=== PATIENT | female | born 1965 | race Caucasian/White ===

== ENCOUNTER → 2023-05-27 11:10 | Outpatient (REF) | payer BC, SELFPAY ==
[2023-05-27 12:18] LABS: ALT (SGPT) 70 U/L (0-35); AST (SGOT) 79 U/L (14-36); Albumin 4.4 g/dl (3.5-5.0); Alkaline Phosphatase 69 U/L (38-126); Blood Urea Nitrogen 18 mg/dl (7-17); Calcium 9.5 mg/dl (8.4-10.2); Carbon Dioxide 24 mmol/L (22-30); Chloride 101 mmol/L (98-107); Glucose 108 mg/dl (70-99); Magnesium 1.8 mg/dl (1.6-2.3); Potassium 3.8 mmol/L (3.5-5.1); Sodium 136 mmol/L (135-145); Total Bilirubin 0.5 mg/dl (0.2-1.3); Total Protein 7.5 g/dl (6.3-8.2); eGFR > 60.00
[2023-05-27 12:47] LABS: Hematocrit 38.6 % (37.0-47.0); Hemoglobin 13.9 g/dL (12.0-16.0); Mean Corpuscular Hgb 29.4 pg (27.0-31.0); Mean Corpuscular Volume 81.8 fL (81.0-99.0); Mean Platelet Volume 10.3 fL (7.4-10.4); Platelet Count 312 10^3/uL (130-400); Red Blood Cell Count 4.72 10^6/uL (4.20-5.40); White Blood Cell Count 4.3 10^3/uL (4.8-10.8)
[2023-05-27 13:49] LABS: Acanthocytes Slight; Anisocytosis Slight; Hypochromasia Slight
[2023-05-27 13:50] LABS: Normal RBC Morphology No; Platelets Checked Yes; Stomatocytes Slight; Total Cells Counted 100
[2023-05-27 14:28] LABS: Band Neutrophils 3 % (0-3); Lymphocytes 56 % (20-51); Monocytes 16 % (2-9); Segmented Neutrophils 22 % (42-75)
== END ==
LOC: REG 11:10
PROVIDERS: ATTENDING PHYSICIAN Nurse Practitioner Family
DX: R00.2 Palpitations (principal)
CPT/HCPCS: 36415; 80053; 83735; 85025

== ENCOUNTER → 2023-06-29 17:23 | Outpatient (REF) | payer BC, SELFPAY ==
[2023-06-29 17:54] LABS: % Basophils 0.5 % (0-2); % Eosinophils 2.2 % (0-6); % Immature Granulocytes 0.2 % (0-0.5); % Lymphocytes 50.7 % (20.5-51.1); % Monocytes 12.7 % (1.7-9.3); % Neutrophils 33.7 % (42.2-75.2); Absolute Basophils 0.1 10^3/uL (0-0.2); Absolute Eosinophils 0.2 10^3/uL (0-0.7); Absolute Lymphocytes 5.2 10^3/uL (1.2-3.4); Absolute Monocytes 1.3 10^3/uL (0.1-0.6); Absolute Neutrophils 3.4 10^3/uL (1.4-6.5); Hematocrit 37.2 % (37.0-47.0); Hemoglobin 13.2 g/dL (12.0-16.0); Mean Corp Hgb Conc. 35.5 g/dL (33.0-37.0); Mean Corpuscular Hgb 29.8 pg (27.0-31.0); Mean Platelet Volume 9.6 fL (7.4-10.4); Nucleated Red Blood Cells % 0 %; Platelet Count 374 10^3/uL (130-400); Red Blood Cell Count 4.43 10^6/uL (4.20-5.40); Red Cell Dist. Width 13.5 % (11.5-14.5); White Blood Cell Count 10.2 10^3/uL (4.8-10.8)
[2023-06-29 18:09] LABS: Erythrocyte Sed Rate 14 mm/hour (0-20)
[2023-06-29 18:10] LABS: ALT (SGPT) 58 U/L (0-35); AST (SGOT) 62 U/L (14-36); Albumin 4.7 g/dl (3.5-5.0); Alkaline Phosphatase 99 U/L (38-126); Blood Urea Nitrogen 21 mg/dl (7-17); Calcium 10.2 mg/dl (8.4-10.2); Carbon Dioxide 28 mmol/L (22-30); Chloride 104 mmol/L (98-107); Glucose 84 mg/dl (70-99); Potassium 4.7 mmol/L (3.5-5.1); Sodium 136 mmol/L (135-145); Total Bilirubin 0.5 mg/dl (0.2-1.3); Total Protein 8.1 g/dl (6.3-8.2); eGFR > 60.00
[2023-06-29 18:12] LABS: C-Reactive Protein < 5.00 mg/L (0.0-10.00)
== END ==
LOC: REG 17:23
PROVIDERS: ATTENDING PHYSICIAN Nurse Practitioner Adult Health
DX: R59.0 Localized enlarged lymph nodes (principal)
CPT/HCPCS: 36415; 80053; 85025; 85652; 86140

== ENCOUNTER → 2023-07-10 07:20 | Outpatient (REF) | payer BC, SELFPAY | LOC: HWRAD 07:20 | PROVIDERS: ATTENDING PHYSICIAN Nurse Practitioner Adult Health | DX: R59.0 Localized enlarged lymph nodes (principal) | CPT/HCPCS: 76536 ==

== ENCOUNTER → 2023-07-30 16:35 | Outpatient (REF) | payer BC, SELFPAY ==
[2023-07-30 17:41] LABS: ALT (SGPT) 55 U/L (0-35); AST (SGOT) 62 U/L (14-36); Albumin 4.5 g/dl (3.5-5.0); Alkaline Phosphatase 92 U/L (38-126); Blood Urea Nitrogen 25 mg/dl (7-17); Calcium 9.9 mg/dl (8.4-10.2); Carbon Dioxide 26 mmol/L (22-30); Chloride 105 mmol/L (98-107); Glucose 85 mg/dl (70-99); Potassium 4.4 mmol/L (3.5-5.1); Sodium 138 mmol/L (135-145); Total Bilirubin 0.5 mg/dl (0.2-1.3); Total Protein 7.6 g/dl (6.3-8.2); eGFR > 60.00
== END ==
LOC: REG 16:35
PROVIDERS: ATTENDING PHYSICIAN Nurse Practitioner Adult Health
DX: R74.01 Elevation of levels of liver transaminase levels (principal)
CPT/HCPCS: 36415; 80053

== ENCOUNTER → 2023-10-08 13:34 | Outpatient (REF) | payer BC, SELFPAY | LOC: WDC 13:34 | PROVIDERS: ATTENDING PHYSICIAN Nurse Practitioner Adult Health | DX: Z12.31 Encounter for screening mammogram for malignant neoplasm of breast (principal) | CPT/HCPCS: 77063; 77067 ==

== ENCOUNTER → 2023-10-23 11:27 | Outpatient (REF) | payer BC, SELFPAY ==
[2023-10-23 13:33] LABS: ALT (SGPT) 35 U/L (0-35); AST (SGOT) 54 U/L (14-36); Albumin 4.4 g/dl (3.5-5.0); Alkaline Phosphatase 88 U/L (38-126); Blood Urea Nitrogen 23 mg/dl (7-17); Calcium 9.7 mg/dl (8.4-10.2); Carbon Dioxide 23 mmol/L (22-30); Chloride 105 mmol/L (98-107); Glucose 81 mg/dl (70-99); Potassium 4.5 mmol/L (3.5-5.1); Sodium 138 mmol/L (135-145); Total Bilirubin 0.7 mg/dl (0.2-1.3); Total Protein 7.3 g/dl (6.3-8.2); eGFR > 60.00
== END ==
LOC: RAD 11:27
PROVIDERS: ATTENDING PHYSICIAN Nurse Practitioner Adult Health
DX: M25.562 Pain in left knee (principal); R74.8 Abnormal levels of other serum enzymes
CPT/HCPCS: 36415; 73564; 80053

== ENCOUNTER → 2024-04-12 10:05 | Outpatient (REF) | payer BC, SELFPAY | LOC: WDC 10:05 | PROVIDERS: ATTENDING PHYSICIAN Nurse Practitioner Adult Health | DX: N63.21 Unspecified lump in the left breast, upper outer quadrant (principal) | CPT/HCPCS: 76642; 77061; 77065 ==

== ENCOUNTER → 2024-05-09 07:26 | Outpatient (REF) | payer BC, SELFPAY ==
[2024-05-09 09:19] LABS: % Basophils 0.4 % (0-2); % Eosinophils 1.8 % (0-6); % Immature Granulocytes 0.3 % (0-0.5); % Lymphocytes 31.1 % (20.5-51.1); % Monocytes 8.5 % (1.7-9.3); % Neutrophils 57.9 % (42.2-75.2); Absolute Eosinophils 0.1 10^3/uL (0-0.7); Absolute Lymphocytes 2.4 10^3/uL (1.2-3.4); Absolute Monocytes 0.7 10^3/uL (0.1-0.6); Absolute Neutrophils 4.5 10^3/uL (1.4-6.5); Hemoglobin 15.5 g/dL (12.0-16.0); Mean Corp Hgb Conc. 35.2 g/dL (33.0-37.0); Mean Corpuscular Hgb 29.4 pg (27.0-31.0); Mean Corpuscular Volume 83.5 fL (81.0-99.0); Mean Platelet Volume 9.4 fL (7.4-10.4); Nucleated Red Blood Cells % 0 %; Platelet Count 445 10^3/uL (130-400); Red Blood Cell Count 5.27 10^6/uL (4.20-5.40); Red Cell Dist. Width 12.2 % (11.5-14.5); White Blood Cell Count 7.7 10^3/uL (4.8-10.8)
[2024-05-09 10:03] LABS: ALT (SGPT) 31 U/L (0-35); AST (SGOT) 44 U/L (14-36); Alkaline Phosphatase 90 U/L (38-126); Blood Urea Nitrogen 20 mg/dl (7-17); Calcium 10.7 mg/dl (8.4-10.2); Carbon Dioxide 27 mmol/L (22-30); Chloride 104 mmol/L (98-107); Glucose 99 mg/dl (70-99); HDL Cholesterol 62 mg/dl; LDL Cholesterol, Calculated 120 mg/dl; Sodium 142 mmol/L (135-145); Total Cholesterol 205 mg/dl (50-199); Total Protein 8.2 g/dl (6.3-8.2); Triglyceride 118 mg/dl (10-149); Very Low Density Lipoprotein 23 mg/dl (0-30); eGFR > 60.00
[2024-05-09 10:32] LABS: TSH Reflex To Free T4 1.07 uIU/ml (0.47-4.68)
== END ==
LOC: RCS 07:26
PROVIDERS: ATTENDING PHYSICIAN Nurse Practitioner; FAMILY PHYSICIAN Nurse Practitioner Adult Health
DX: R07.9 Chest pain, unspecified (principal); Z00.00 Encounter for general adult medical examination without abnormal findings
CPT/HCPCS: 93017; 36415; 80053; 80061; 84443; 85025

== ENCOUNTER → 2024-05-11 08:22 | Outpatient (REF) | payer BC, SELFPAY | LOC: HWRCS 08:22 | PROVIDERS: ATTENDING PHYSICIAN Nurse Practitioner; FAMILY PHYSICIAN Nurse Practitioner Adult Health | DX: R07.9 Chest pain, unspecified (principal) | CPT/HCPCS: 93306 ==

== ENCOUNTER → 2024-05-14 09:38 | Outpatient (REF) | payer BC, SELFPAY | LOC: RCS 09:38 | PROVIDERS: ATTENDING PHYSICIAN Nurse Practitioner; FAMILY PHYSICIAN Nurse Practitioner Adult Health | DX: I49.3 Ventricular premature depolarization (principal) | CPT/HCPCS: 93225; 93226 ==

== ENCOUNTER → 2024-05-31 12:44 | Outpatient (REF) | payer BC, SELFPAY ==
[2024-05-31 13:47] LABS: Hematocrit 39.1 % (37.0-47.0); Hemoglobin 14.1 g/dL (12.0-16.0); Mean Corp Hgb Conc. 36.1 g/dL (33.0-37.0); Mean Corpuscular Volume 80.3 fL (81.0-99.0); Mean Platelet Volume 9.4 fL (7.4-10.4); Platelet Count 413 10^3/uL (130-400); Red Blood Cell Count 4.87 10^6/uL (4.20-5.40); Red Cell Dist. Width 12.1 % (11.5-14.5); White Blood Cell Count 9.3 10^3/uL (4.8-10.8)
[2024-05-31 14:16] LABS: Calcium 10.3 mg/dl (8.4-10.2); Iron 90 ug/dl (37-170)
[2024-05-31 14:21] LABS: % Basophils 0.3 % (0-2); % Eosinophils 1.7 % (0-6); % Immature Granulocytes 0.2 % (0-0.5); % Lymphocytes 46.8 % (20.5-51.1); % Monocytes 8.8 % (1.7-9.3); % Neutrophils 42.2 % (42.2-75.2); Absolute Eosinophils 0.2 10^3/uL (0-0.7); Absolute Lymphocytes 4.4 10^3/uL (1.2-3.4); Absolute Monocytes 0.8 10^3/uL (0.1-0.6); Absolute Neutrophils 3.9 10^3/uL (1.4-6.5); Nucleated Red Blood Cells % 0 %
[2024-05-31 14:25] LABS: Percent Saturation 29 % (20-50); Total Iron Binding Capacity 306 ug/dl (265-497)
--- NOTE | 2024-05-31 14:39 | CARDSERVLU ---
Echocardiogram with [facility] completed after protocol screening completed. Allergies verified.
Patent IV site: _Right antecubital 22 G PC inserted first attempt____
IV site flushed with 0.9% NaCl pre and post administration.
Diluted bolus method utilized to enhance visualization of ventricular pedro.
Total volume given: _3___ mL
Patient tolerated all procedures well without complications.
Hep;lock D/C ed at 1437, site clear, no redness, no edema. Pressure held, no bleeding. 2x2 applied and taped. Pt offers no complaints.
[2024-05-31 14:48] LABS: Hepatitis B Surface Antigen Negative (Negative)
[2024-05-31 14:53] LABS: Ferritin 61.4 ng/ml (11.1-264.0); Hepatitis A IgM Antibody Negative (Negative)
[2024-05-31 15:05] LABS: Hepatitis B Core Ab, Total Negative (Negative); Hepatitis C Antibody Negative (Negative)
[2024-06-01 08:51] LABS: Intact PTH 48.2 pg/ml (13.6-85.8)
== END ==
LOC: RCS 12:44
PROVIDERS: ATTENDING PHYSICIAN Internal Medicine Cardiovascular Disease; FAMILY PHYSICIAN Nurse Practitioner Adult Health
DX: I25.3 Aneurysm of heart (principal); I49.3 Ventricular premature depolarization; R07.9 Chest pain, unspecified
CPT/HCPCS: 93308; 36415; 82728; 83540; 83550; 83970; 85025; 86704; 86709; 86803; 87340; Q9950

== ENCOUNTER → 2024-06-15 10:29 | Outpatient (REF) | payer BC, SELFPAY | LOC: RAD 10:29 | PROVIDERS: ATTENDING PHYSICIAN Internal Medicine Cardiovascular Disease; FAMILY PHYSICIAN Nurse Practitioner Adult Health | DX: I72.9 Aneurysm of unspecified site (principal) | CPT/HCPCS: 75572; Q9967 ==

== ENCOUNTER → 2024-09-19 12:25 | Outpatient (REF) | payer BC, SELFPAY | LOC: RAD 12:25 | PROVIDERS: ATTENDING PHYSICIAN Thoracic Surgery (Cardiothoracic Vascular Surgery); FAMILY PHYSICIAN Nurse Practitioner Adult Health; OTHER PHYSICIAN Internal Medicine Cardiovascular Disease; OTHER PHYSICIAN Surgery | DX: I25.3 Aneurysm of heart (principal) | CPT/HCPCS: 75572; Q9967 ==

== ENCOUNTER 2024-10-20 20:10 | Emergency (ER) | payer BC, SELFPAY ==
[2024-10-20 20:19] VITALS: BP 171/91
[2024-10-20 20:54] LABS: Hematocrit 39.8 % (37.0-47.0); Hemoglobin 14.4 g/dL (12.0-16.0); Mean Corp Hgb Conc. 36.2 g/dL (33.0-37.0); Mean Corpuscular Volume 81.6 fL (81.0-99.0); Platelet Count 402 10^3/uL (130-400); Red Cell Dist. Width 12.2 % (11.5-14.5)
[2024-10-20 21:05] LABS: ALT (SGPT) 21 U/L (0-35); AST (SGOT) 39 U/L (14-36); Albumin 4.7 g/dl (3.5-5.0); Alkaline Phosphatase 91 U/L (38-126); Blood Urea Nitrogen 23 mg/dl (7-17); Calcium 10.0 mg/dl (8.4-10.2); Carbon Dioxide 27 mmol/L (22-30); Chloride 104 mmol/L (98-107); Glucose 106 mg/dl (70-99); Potassium 4.7 mmol/L (3.5-5.1); Sodium 137 mmol/L (135-145); Total Protein 8.0 g/dl (6.3-8.2); eGFR > 60.00
[2024-10-20 21:18] LABS: Troponin I 0.013 ng/ml
[2024-10-20 21:47] LABS: Absolute Neutrophils -Man Diff 4.1 10^3/uL (1.4-6.5); Platelets Checked Yes
[2024-10-20 21:48] LABS: Normal RBC Morphology Yes; Total Cells Counted 100
[2024-10-21 00:44] LABS: Troponin I < 0.012 ng/ml
[2024-10-21 00:50] VITALS: BP 164/96; BMI 28.1
[2024-10-21 00:52] VITALS: BP 164/96
[2024-10-21 01:00] VITALS: BP 170/94
[2024-10-21] MEDS: CARAFATE SUSPENSION 1 GM PO (01:24)
[2024-10-21] MEDS: NSS 1000 IV (01:24)
--- NOTE | 2024-10-21 02:10 | ED.GENMED ---
History of Present Illness
General
Chief Complaint: Chest Pain
Source: patient and spouse
Exam Limitations: none
Time Seen by Provider: 10/21/24 00:35
Nursing documentation reviewed up to this point in time: agreed with
History of Present Illness
History of Present Illness:
Note:
CHIEF COMPLAINT(S)
Chest pain.
HISTORY OF PRESENT ILLNESS
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 She reports the development of chest pain predominantly after dinner today. She noted that the pain was different from her
previous experiences with gastroesophageal reflux disease (GERD), describing it as more intense and different in quality compared to 'heart-burning.' The pain was significant enough for her to consider contacting her management internship, Dr. Meek.
The patient has had previous interventions and imaging, including a recent CT scan in September, revealing measurements of 1.6 mm or 2.4 mm depending on the test location. The need for repeat imaging and a full cardiac work-up was discussed to evaluate
the chest pain further.
SOCIAL HISTORY
The patient is actively involved in educational activities, assisting in setting up classroom environments. She has a daughter and shares that her family had a recent international travel experience, including a trip to [facility] and [facility].
PHYSICAL EXAM
General: Alert, no acute distress.
Skin: Warm, dry.
Head: Normocephalic, atraumatic.
Neck: Supple, trachea midline.
Eyes, Ears, Nose, Mouth and Throat: Oral mucosa moist.
Cardiovascular: Normal peripheral perfusion, No edema.
Respiratory: Respirations are non-labored.
Gastrointestinal: Abdomen non-distended.
Back: Normal range of motion, Normal alignment.
Musculoskeletal: Normal range of motion, normal strength.
Neurological: Alert and oriented to person, place, time, and situation, No focal neurological deficit observed.
Psychiatric: Cooperative, appropriate mood & affect.
PLAN
A full cardiac work-up was recommended to investigate the chest pain further. This includes repeat CT imaging of the chest to assess any changes from September and close monitoring of cardiac markers. The patient was advised on the possible use of
carafate to help alleviate symptoms that might be related to reflux or cardiac issues until further diagnostics could clarify the cause of pain.
DIFFERENTIAL DIAGNOSIS
The Differential Diagnosis includes, in no particular order and is not limited to:
1. Cardiac ischemia or myocardial infarction.
2. Gastroesophageal reflux disease (GERD).
3. Musculoskeletal chest pain.
4. Pericarditis.
5. Pulmonary embolism.
6. Anxiety-related chest pain.
7. Costochondritis.
8. Esophageal spasm or motility disorder.
9. Aortic dissection.
10. Cardiac arrhythmia or palpitations.
Disposition:
SUMMARY OF ENCOUNTER
The patient, a 59-year-old female, presented to the emergency department with complaints of chest pain. She has a medical history of cardiac ablation with resultant scar tissue formation. Her chest pain was not consistent with her prior
gastroesophageal reflux disease episodes and was sufficiently intense that she considered contacting her management internship. A CT scan of the chest was conducted today and did not reveal any pseudoaneurysm or other acute abnormalities. Laboratory results
showed a white blood cell count of 12.15, with neutrophils at 33% and lymphocytes at 53%, suggesting a potential developing infection, although no source was identified.
DISPOSITION
Discharge
ASSESSMENT
The patients chest pain with the current findings suggests a potential underlying developing infection, but with no identifiable source. The CT scan today ruled out immediate life-threatening conditions such as pseudoaneurysm.
PLAN
The plan is for the patient to follow up with her management internship for further evaluation and monitoring.
INDEPENDENT REVIEW OF LABS AND INTERPRETATION OF TESTS
My independent chest CT interpretation shows no evidence of pseudoaneurysm or other acute abnormalities.
PATIENT EDUCATION AND COUNSELING
The patient was informed about the current findings and the importance of following up with her management internship to monitor her chest pain and potential infection further.
FOLLOW-UP INSTRUCTIONS
The patient is instructed to follow up with her management internship for further evaluation and monitoring.
MEDICAL DECISION MAKING
- Number and Complexity of Problems Addressed: Chronic conditions affecting care include a history of cardiac ablation with scar tissue, potential developing infection. Differential diagnosis includes cardiac ischemia or myocardial infarction, GERD,
musculoskeletal chest pain, pericarditis, pulmonary embolism, anxiety-related chest pain, costochondritis, esophageal spasm or motility disorder, aortic dissection, and cardiac arrhythmia or palpitations.
- Data:
Category 1: Testing conducted includes a CT scan of the chest and CBC tests.
Category 2: My independent interpretation of the chest CT scan was conducted today.
- Risk: Consideration of Admission/Observation: Escalation of care including admission/observation was considered given the complexity and risk of the patients presenting complaint, but ultimately, the patient is deemed safe for outpatient
management with close follow-up due to reassuring work-up, stable vitals, and no acute life-threatening processes noted.
DIAGNOSIS
- Chest Pain, unspecified (ICD-10: R07.9)
- Leukocytosis, unspecified (ICD-10: D72.829)
Past History
Past History
ED Past Medical History: Arrthythmia (PVCs), HTN, Psychiatric and Other (Hereditary spherocytosis, cardiomyopathy, PVCs, migraine, concussion, anxiety, depression)
ED Past Surgical History: Cardiac (Ablation December 2018) and Other (Splenectomy)
Social History
Tobacco: Non-smoker
Alcohol: Occasional
Drug: None
Personal:
Living: with family
Phy Exam
Physical Exam
Physical Exam:
.
Scores
Heart Score for Chest Pain Patients
STEMI patient?: No
History: Slightly or Non-Suspicious
ECG: Normal
Age: >45 - <65 years
Risk Factors: 1 or 2 Risk Factors
Troponin: </= Normal Limit
Heart Score for Chest Pain Patients: 2
Heart Score Risk: 2.5% MACE over next 6 weeks
Course
Orders/Labs/Results
Orders:
Orders
10/20/24 20:11
Electrocardiogram (*1) Urgent
Reason for Study: Chest Pain
EKG- Treatment ONCE
10/20/24 20:34
Complete Blood Count/With Diff Urgent
Comprehensive Metabolic Panel Urgent
Manual Differential Urgent
Troponin I Urgent
10/21/24 00:13
Troponin I Urgent
10/21/24 00:47
CT Chest Angio W/wo Iv Contras Urgent
Comment:
Reason For Exam: known aneurysm, chest pain
10/21/24 01:00
Sucralfate Suspension [Carafate Suspension] 1 gm PO NOW STA
10/21/24 01:15
0.9% Sodium Chloride 1000 ml [Nss] 1,000 ml IV 500 mls/hr
10/21/24 01:30
0.9% Sodium Chloride 1000 ml [Nss] 1,000 ml IV 500 mls/hr
Abnormal Lab Results
10/20/24
20:34
WBC 12.5 H 10^3/uL
(4.8-10.8)
Plt Count 402 H 10^3/uL
(130-400)
Segmented Neutrophils 33 L %
(42-75)
Lymphocytes (Manual) 53 H %
(20-51)
BUN 23 H mg/dl
(7-17)
Glucose 106 H mg/dl
(70-99)
AST 39 H U/L
(14-36)
10/20/24 20:34
10/20/24 20:34
Vital Signs
Initial and Last Documented VS:
Initial Vital Signs
Temp Pulse Resp BP Pulse Ox
98.3 F 64 16 171/91 100
10/20/24 20:19 10/20/24 20:19 10/20/24 20:19 10/20/24 20:19 10/20/24 20:19
Last Documented Vital Signs
Temp Pulse Resp BP Pulse Ox
98.3 F 53 15 170/94 99
10/20/24 20:19 10/21/24 02:00 10/21/24 02:00 10/21/24 01:00 10/21/24 02:11
*Radiology
Radiology exam reviewed: radiology read reviewed
*Pulse Oximetry
SaO2: 99
Oxygen Mode of Delivery: Room air
Patient hypoxic: no
*Critical Care Note
Total Time (30-74mins, 75-104mins- exclusive of procedures): Not Applicable
Update Note
Update Note:
NAME: ROSETTA SINGH
DATE OF EXAM: 10/21/2024
Patient No: [id number]
Physician: NANI
Date of : 1965
Past Medical History (entered by Technologist):
Reason For Exam (entered by Technologist):
Other Notes (entered by Technologist): Pt states that she was at a [employer] dinner and started having midepigastric pain that she rates at a 6/10. Pt has burning midline pressure.
Additional Information (per [facility] Radiologist):
CTA CHEST
IMPRESSION:
1. Adequate technical study. No acute pulmonary embolism.
2. No thoracic aortic aneurysm or acute aortic dissection. Clear lungs.
Incidentals:
- Small hiatal hernia
- No acute osseous abnormality.
- No acute abnormality within the visualized abdomen.
- No thoracic lymphadenopathy or suspicious lymph nodes.
Case finalized on Oct 21 2024 1:47AM ET
Nhan Noriega M.D.
This report has been electronically signed and verified by the Radiologist whose name is printed above.
ED Attending Note
-
Portions of this chart may have been created with voice recognition software.� Occasional wrong word or��sound alike� substitutions may have occurred due to the inherent limitations of voice recognition software.
Discharge Plan
Departure
Patient Disposition: Home (Routine Discharge)
Date of Disposition: 10/21/24
Time of Disposition: 02:14
Patient with high blood pressure during this ER visit?: Yes
Condition: Good
Discharge Problem:
Chest pain
Instructions: Chest Pain PCP Follow Up, BLOOD PRESSURE
Prescriptions:
No Action
escitalopram oxalate 5 MG tablet
20 mg PO DAILY
metoprolol succinate 25 MG tablet extended release 24 hr
25 mg PO BID Qty: 60 10RF
acetaminophen 325 MG tablet
650 mg PO Q4HPRN PRN (Reason: MILD PAIN, HEADACHE)
Referrals:
Cande Ellington CRNP [Family Provider, Internal Medicine]
Activity Restrictions/Additional Instructions:
Thank You for choosing [facility].
It was a pleasure meeting you and taking part in your care. We hope for your continued healing and wellness.
Please read discharge instructions in their entirety. However, they are for general education and may not describe your exact diagnosis at discharge. Information on your ER visit and medical conditions were discussed with you along with appropriate
follow up information...
If indicated, please take your medications as instructed and indicated on discharge paperwork.
Please schedule a follow up appointment as directed. Call to schedule an appointment
Please return to the emergency department with ANY change in, persisting, or worsening of symptoms. If any of your symptoms do not improve, or persist, or become more severe within 6-12 hours, please return to the emergency department for further
care.
Please return to the emergency department if you develop a headache, neck pain/stiffness, fever greater than 100.4F, chest pain, shortness of breath, persistent nausea, vomiting, slurred speech, difficulty walking, numbness/tingling, weakness, signs
of infection or any other symptoms that are worrisome to you.
If you have any questions or concerns please do not hesitate to call the Hospital at or E-mail me directly at [email or web address]
Interventions
Interventions:
*Risk Screen - Suicide Last Done: 10/20/24 20:19
*General Assessment Last Done: 10/20/24 20:19
*Neglect/Abuse Screening Last Done: 10/20/24 20:19
*ED- Fall Risk Assessment Last Done: 10/20/24 20:19
*ED COVID-19 Vaccine History Last Done: 10/20/24 20:19
*Nursing Disposition Last Done: 10/21/24 02:37
ED- Cardiac Assessment Last Done: 10/21/24 01:06
Discharge Date and Time
Discharge Date/Time: 10/21/24 02:38
Print Language: BULGARIAN
== END 2024-10-21 02:38 | disposition home or self-care (01) ==
LOC: EMR 20:10
PROVIDERS: Student in an Organized Health Care Education/Training Program; EMERGENCY PHYSICIAN Student in an Organized Health Care Education/Training Program; FAMILY PHYSICIAN Nurse Practitioner Adult Health
DX: R07.9 Chest pain, unspecified (principal); D72.829 Elevated white blood cell count, unspecified; I42.9 Cardiomyopathy, unspecified; I49.3 Ventricular premature depolarization; I10 Essential (primary) hypertension; K21.9 Gastro-esophageal reflux disease without esophagitis; F41.9 Anxiety disorder, unspecified; F32.A Depression, unspecified; G43.909 Migraine, unspecified, not intractable, without status migrainosus
CPT/HCPCS: 99284; 96360; 71275; 80053; 84484; 85025; 93005; Q9967

== ENCOUNTER → 2025-01-14 09:23 | Outpatient (REF) | payer BC, SELFPAY ==
[2025-01-14 10:34] LABS: Blood Urea Nitrogen 17 mg/dl (7-17); Calcium 10.1 mg/dl (8.4-10.2); Carbon Dioxide 27 mmol/L (22-30); Chloride 103 mmol/L (98-107); Glucose 109 mg/dl (70-99); Potassium 5.0 mmol/L (3.5-5.1); Sodium 137 mmol/L (135-145); eGFR > 60.00
== END ==
LOC: REG 09:23
PROVIDERS: ATTENDING PHYSICIAN Thoracic Surgery (Cardiothoracic Vascular Surgery); FAMILY PHYSICIAN Nurse Practitioner Adult Health; REFERRING PHYSICIAN Surgery
DX: I25.3 Aneurysm of heart (principal); Z01.810 Encounter for preprocedural cardiovascular examination
CPT/HCPCS: 36415; 80048

== ENCOUNTER → 2025-01-25 13:23 | Outpatient (REF) | payer BC, SELFPAY | LOC: RAD 13:23 | PROVIDERS: ATTENDING PHYSICIAN Thoracic Surgery (Cardiothoracic Vascular Surgery); FAMILY PHYSICIAN Nurse Practitioner Adult Health; OTHER PHYSICIAN Surgery; REFERRING PHYSICIAN Internal Medicine Cardiovascular Disease | DX: I25.3 Aneurysm of heart (principal); Z01.810 Encounter for preprocedural cardiovascular examination | CPT/HCPCS: 75572; Q9967 ==